=== PATIENT | male | born 1955 | race Caucasian/White ===

== ENCOUNTER → 2016-02-19 | Outpatient (CLI) | payer MEDICARE, MEDICAID ==
[~2016-02-19] MED LIST: CYCL7.5T15 PO; FAMO-12 PO; METH750T3 OR; NOR5T PO; RISP3TAB41 PO; SERTPOW PO; SIMV10TA84 PO; TIOTCAP; TIOTCAP IN; WARF5TAB71 OR; [UNRECOGNIZED DRUG - CODE] IJ; [UNRECOGNIZED DRUG - OTHER]
== END | disposition home or self-care (01) ==
LOC: XY 11:57
DX: G45.8 Other transient cerebral ischemic attacks and related syndromes (principal)
CPT/HCPCS: 93886

== ENCOUNTER 2016-04-25 13:04 | Inpatient (IN) | payer MEDICARE, MEDICAID ==
[~2016-04-25] VITALS: Ht 172.7 cm; Wt 85.7 kg
[~2016-04-25 13:04] MED LIST changes: +LEVO500T3 PO; +SACC250C PO; -TIOTCAP
[2016-04-25] MEDS ORDERED: PIPERACILLIN-TAZOB 3.375GM 100 ML IV ONE (13:45)
[2016-04-25] MEDS ORDERED: methylPREDNISolone SOD SUCC 125 MG/2 ML VL IV ONE (13:45)
[2016-04-25] MEDS ORDERED: ALBUTEROL SULF 2.5 MG/0.5ML(0.5%) NEB SOLN NEB ONE (13:45)
[2016-04-25] MEDS ORDERED: cefTRIAXone 1GM/50ML D5W 50 ML IV ONE (13:45)
[2016-04-25] MEDS ORDERED: IPRATROPIUM BROM 0.5 MG/2.5ML INH SOL NEB ONE (13:45)
[2016-04-25] MEDS ORDERED: SODIUM CHLORIDE 0.9% 1,000 ML IV ONE (14:00)
[2016-04-25] MEDS ORDERED: ACETAMINOPHEN 325 MG TAB PO ONE (14:15)
[2016-04-25 14:16] LABS: Hematocrit 42.5 % (41.0-53.0); Hemoglobin 14.2 g/dL (13.5-17.5); Mean Corpuscular Hemoglobin 29.9 pg (28.0-32.0); Mean Corpuscular Hgb Conc. 33.4 g/dL (32.0-36.0); Mean Corpuscular Volume 89.6 fL (80.0-100.0); Platelet Count (auto) 277 10^3/uL (140-450); Red Cell Distribution Width 14.5 % (11.6-16.0); SUSPECT VIEW TRANSMISSION; White Blood Cell 5.5 10^3/uL (4.4-10.8)
[2016-04-25 14:34] LABS: B-Type Natriuretic Peptide 14.35 pg/mL (0-100)
[2016-04-25 14:39] LABS: Albumin 3.7 g/dL (3.4-5.0); Alkaline Phosphatase 60 U/L (45-117); Anion Gap 5 (5-15); Aspartate Aminotransferase 22 U/L (15-37); BUN/Creatinine Ratio 20.7; Bilirubin, Total 0.2 mg/dL (0.2-1.0); Blood Urea Nitrogen 19 mg/dL (7-18); Calcium 9.1 mg/dL (8.5-10.1); Carbon Dioxide 36 mmol/L (21-32); Chloride 105 mmol/L (98-107); GFR African American 108 mL/min; GFR Non-African American 89 mL/min; Glucose 107 mg/dL (74-106); Magnesium 2.4 mg/dL (1.6-2.6); Sodium 146 mmol/L (136-145); Total Protein 7.9 g/dL (6.4-8.2)
[2016-04-25 14:44] LABS: Temperature: 22.9 C (20.0-25.0)
[2016-04-25 14:51] LABS: Metamyelocytes % 0; Myelocytes % 0; Promyelocytes % 0; Reactive Lymphocytes 0
[2016-04-25] MEDS ORDERED: ENOXAPARIN SOD 80 MG/0.8ML SYRINGE SC ONE (15:30)
[2016-04-25 15:39] LABS: Platelet Estimate Adequate
[2016-04-25 15:40] LABS: Stomatocytes Few
[2016-04-25 15:50] LABS: Partial Thromboplastin Time 33.4 sec (22.64-33.71)
[2016-04-25 15:58] LABS: Prothrombin Time 18.9 sec (9.37-12.3)
[2016-04-25 15:59] LABS: INR 1.83 (0.9-1.15)
[2016-04-25] MEDS ORDERED: OSELTAMIVIR 75 MG CAP PO ONE (16:15)
[2016-04-25] MEDS ORDERED: TEMAZEPAM 15 MG CAP PO PRN (16:15)
[2016-04-25] MEDS ORDERED: MORPHINE SULF INJ 2 MG/ML SYRINGE 1ML IV PRN (16:15)
[2016-04-25] MEDS ORDERED: LACTULOSE 20Gm/30ML SOLN PO PRN (16:15)
[2016-04-25] MEDS ORDERED: NITROGLYCERIN 0.4 MG SL TAB SL PRN (16:15)
[2016-04-25] MEDS ORDERED: LORazepam 0.5 MG TAB PO PRN (16:15)
[2016-04-25] MEDS ORDERED: ACETAMINOPHEN 500 MG TAB PO PRN (16:15)
[2016-04-25] MEDS ORDERED: ALBUTEROL SULF 2.5 MG/0.5ML(0.5%) NEB SOLN NEB PRN (16:15)
[2016-04-25] MEDS ORDERED: METHOCARBAMOL 500 MG TAB PO PRN (16:30)
[2016-04-25] MEDS: SODIUM CHLORIDE 0.9% 1,000 ML IV SCH (16:34)
[2016-04-25] MEDS: AZITHROMYCIN 500MG/D5W 250ML 250 ML IV SCH (16:34)
[2016-04-25] MEDS ORDERED: WARFARIN SODIUM 2.5 MG TAB PO ONE (17:00)
[2016-04-25] MEDS: methylPREDNISolone SOD SUCC 40 MG/ML VL IV SCH (17:45)
[2016-04-25] MEDS: IPRATROPIUM BROM 0.5 MG/2.5ML INH SOL NEB SCH (18:18)
[2016-04-25] MEDS: ALBUTEROL SULF 2.5 MG/0.5ML(0.5%) NEB SOLN NEB SCH (18:18)
[2016-04-25 20:53] VITALS: BP 116/74
[2016-04-25] MEDS: PRAVASTATIN SODIUM 20 MG TAB PO SCH (21:18)
[2016-04-25] MEDS: FAMOTIDINE 20 MG TAB PO SCH (21:18)
[2016-04-25] MEDS: risperiDONE 1 MG TAB PO SCH (21:18)
[2016-04-25 22:22] VITALS: BP 119/70
[2016-04-26] VITALS (10 sets, daily range): BP systolic 118–139; BP diastolic 62–86
[2016-04-26] MEDS: IPRATROPIUM BROM 0.5 MG/2.5ML INH SOL NEB SCH ×4 (00:28→18:50)
[2016-04-26] MEDS: ALBUTEROL SULF 2.5 MG/0.5ML(0.5%) NEB SOLN NEB SCH ×4 (00:28→18:50)
[2016-04-26] MEDS: HYDROcodone-ACET 5/325MG TAB PO PRN ×3 (00:56→19:41)
[2016-04-26] MEDS: SODIUM CHLORIDE 0.9% 1,000 ML IV SCH ×2 (05:26→21:22)
[2016-04-26] MEDS: methylPREDNISolone SOD SUCC 40 MG/ML VL IV SCH ×4 (06:08→17:35)
[2016-04-26 06:30] LABS: Basophils # (auto) 0 uL; Eosinophils # (auto) 0 uL; Eosinophils % (auto) 0.1 % (0.0-7.0); Hematocrit 38.1 % (41.0-53.0); Hemoglobin 12.6 g/dL (13.5-17.5); Lymphocytes # (auto) 0.4 uL; Lymphocytes % (auto) 7.8 % (10.0-50.0); Mean Corpuscular Hemoglobin 29.9 pg (28.0-32.0); Mean Corpuscular Hgb Conc. 33.1 g/dL (32.0-36.0); Mean Corpuscular Volume 90.5 fL (80.0-100.0); Mean Platelet Volume 8.4 fL (7.4-10.4); Monocytes # (auto) 0.2 uL; Monocytes % (auto) 3.7 % (0.0-12.0); Neutrophils # (auto) 4.3 uL; Neutrophils % (auto) 88.4 % (37.0-80.0); Platelet Count (auto) 244 10^3/uL (140-450); Red Cell Distribution Width 14.4 % (11.6-16.0); White Blood Cell 4.8 10^3/uL (4.4-10.8)
[2016-04-26 06:46] LABS: Potassium 3.9 mmol/L (3.5-5.1)
[2016-04-26 06:54] LABS: Albumin 3.1 g/dL (3.4-5.0); BUN/Creatinine Ratio 28.1; Calcium 8.5 mg/dL (8.5-10.1)
[2016-04-26 06:55] LABS: Partial Thromboplastin Time 36.1 sec (22.64-33.71)
[2016-04-26 06:56] LABS: Bilirubin, Total 0.2 mg/dL (0.2-1.0)
[2016-04-26 07:02] LABS: INR 2.49 (0.9-1.15); Prothrombin Time 25.6 sec (9.37-12.3)
[2016-04-26] MEDS: cefTRIAXone 1GM/50ML D5W 50 ML IV SCH (09:07)
[2016-04-26] MEDS ORDERED: OSELTAMIVIR 75 MG CAP PO SCH (10:00)
[2016-04-26] MEDS: AZITHROMYCIN 500MG/D5W 250ML 250 ML IV SCH (10:12)
[2016-04-26] MEDS: SERTRALINE HCL 50 MG TAB PO SCH (10:12)
[2016-04-26] MEDS: FAMOTIDINE 20 MG TAB PO SCH ×2 (10:12→21:22)
[2016-04-26] MEDS ORDERED: NICOTINE 7MG/24HR TOPICAL PATCH TD ONE (11:15)
[2016-04-26] MEDS: PROMETHAZINE HCL 25 MG/ML 1ML IV PRN (11:52)
[2016-04-26] MEDS ORDERED: WARFARIN SODIUM 2.5 MG TAB PO ONE (17:00)
[2016-04-26] MEDS: PRAVASTATIN SODIUM 20 MG TAB PO SCH (21:22)
[2016-04-26] MEDS: risperiDONE 1 MG TAB PO SCH (21:23)
[2016-04-27] VITALS (7 sets, daily range): BP systolic 130–158; BP diastolic 77–88
[2016-04-27] MEDS: IPRATROPIUM BROM 0.5 MG/2.5ML INH SOL NEB SCH ×5 (00:11→23:36)
[2016-04-27] MEDS: ALBUTEROL SULF 2.5 MG/0.5ML(0.5%) NEB SOLN NEB SCH ×5 (00:11→23:36)
[2016-04-27] MEDS: methylPREDNISolone SOD SUCC 40 MG/ML VL IV SCH ×5 (00:13→21:51)
[2016-04-27 06:38] LABS: Partial Thromboplastin Time 32.4 sec (22.64-33.71)
[2016-04-27 06:56] LABS: INR 2.41 (0.9-1.15); Prothrombin Time 24.8 sec (9.37-12.3)
[2016-04-27] MEDS: cefTRIAXone 1GM/50ML D5W 50 ML IV SCH (08:54)
[2016-04-27] MEDS: NICOTINE 7MG/24HR TOPICAL PATCH TD SCH (09:29)
[2016-04-27] MEDS: AZITHROMYCIN 500MG/D5W 250ML 250 ML IV SCH (09:30)
[2016-04-27] MEDS: FAMOTIDINE 20 MG TAB PO SCH ×2 (09:30→21:52)
[2016-04-27] MEDS: SERTRALINE HCL 50 MG TAB PO SCH (09:30)
[2016-04-27] MEDS: HYDROcodone-ACET 5/325MG TAB PO PRN ×2 (10:03→21:52)
[2016-04-27] MEDS: PROMETHAZINE HCL 25 MG/ML 1ML IV PRN (11:07)
[2016-04-27] MEDS ORDERED: WARFARIN SODIUM 2.5 MG TAB PO ONE (17:00)
[2016-04-27] MEDS: PRAVASTATIN SODIUM 20 MG TAB PO SCH (21:52)
[2016-04-27] MEDS: risperiDONE 1 MG TAB PO SCH (21:52)
[2016-04-28] MEDS: methylPREDNISolone SOD SUCC 40 MG/ML VL IV SCH ×3 (05:28→21:54)
[2016-04-28] MEDS: HYDROcodone-ACET 5/325MG TAB PO PRN ×3 (05:29→21:55)
[2016-04-28 05:46] LABS: Partial Thromboplastin Time 29.5 sec (22.64-33.71)
[2016-04-28 05:49] LABS: INR 2.04 (0.9-1.15)
[2016-04-28] MEDS: ALBUTEROL SULF 2.5 MG/0.5ML(0.5%) NEB SOLN NEB SCH ×4 (06:18→23:59)
[2016-04-28] MEDS: IPRATROPIUM BROM 0.5 MG/2.5ML INH SOL NEB SCH ×4 (06:18→23:58)
[2016-04-28 08:39] VITALS: BP 148/89
[2016-04-28] MEDS: MORPHINE SULF INJ 2 MG/ML SYRINGE 1ML IV PRN (09:46)
[2016-04-28] MEDS: cefTRIAXone 1GM/50ML D5W 50 ML IV SCH (09:47)
[2016-04-28] MEDS: NICOTINE 7MG/24HR TOPICAL PATCH TD SCH (11:00)
[2016-04-28] MEDS: SERTRALINE HCL 50 MG TAB PO SCH (11:01)
[2016-04-28] MEDS: AZITHROMYCIN 500MG/D5W 250ML 250 ML IV SCH (11:01)
[2016-04-28] MEDS: FAMOTIDINE 20 MG TAB PO SCH ×2 (11:01→21:54)
[2016-04-28 12:14] VITALS: BP 148/84
[2016-04-28] MEDS ORDERED: WARFARIN SODIUM 2 MG TAB PO ONE (17:00)
[2016-04-28] MEDS: PRAVASTATIN SODIUM 20 MG TAB PO SCH (21:54)
[2016-04-28] MEDS: risperiDONE 1 MG TAB PO SCH (21:54)
[2016-04-28 22:00] VITALS: BP 151/89
[2016-04-29] MEDS: MORPHINE SULF INJ 2 MG/ML SYRINGE 1ML IV PRN (00:19)
[2016-04-29 05:00] VITALS: BP 159/99
[2016-04-29] MEDS: ALBUTEROL SULF 2.5 MG/0.5ML(0.5%) NEB SOLN NEB SCH ×2 (05:56→12:21)
[2016-04-29] MEDS: IPRATROPIUM BROM 0.5 MG/2.5ML INH SOL NEB SCH ×2 (05:56→12:21)
[2016-04-29] MEDS: methylPREDNISolone SOD SUCC 40 MG/ML VL IV SCH (05:59)
[2016-04-29 07:33] LABS: INR 1.76 (0.9-1.15); Partial Thromboplastin Time 27.6 sec (22.64-33.71); Prothrombin Time 18.1 sec (9.37-12.3)
[2016-04-29 07:43] LABS: Potassium 4.2 mmol/L (3.5-5.1)
[2016-04-29 07:56] LABS: Albumin 3.3 g/dL (3.4-5.0); BUN/Creatinine Ratio 29.5; Calcium 8.4 mg/dL (8.5-10.1)
[2016-04-29 07:59] LABS: Bilirubin, Total 0.3 mg/dL (0.2-1.0); Total Protein 6.7 g/dL (6.4-8.2)
[2016-04-29 09:00] VITALS: BP 149/87
[2016-04-29] MEDS: SERTRALINE HCL 50 MG TAB PO SCH (09:10)
[2016-04-29] MEDS: FAMOTIDINE 20 MG TAB PO SCH (09:11)
[2016-04-29] MEDS: NICOTINE 7MG/24HR TOPICAL PATCH TD SCH (09:12)
[2016-04-29] MEDS: HYDROcodone-ACET 5/325MG TAB PO PRN (09:16)
[2016-04-29] MEDS ORDERED: LEVOFLOXACIN 500 MG TAB PO SCH (10:00)
[2016-04-29 12:58] VITALS: BP 149/87
[2016-04-29 13:00] VITALS: BP 150/91
[2016-04-29] MEDS ORDERED: WARFARIN SODIUM 2 MG TAB PO ONE (17:00)
== END 2016-04-29 14:50 | disposition home health service (06) | DRG 189 ==
LOC: EDUNIT# 13:04 → ER 13:11 → TELE 13:12 → DOU IN ICU 04-26 03:05 → TELE-EAST 04-27 15:46
PROVIDERS: ADMIT Internal Medicine; ATTEND Internal Medicine
PROC: 5A09357 Assistance with Respiratory Ventilation, Less than 24 Consecutive Hours, Continuous Positive Airway Pressure (ICD-10-PCS; principal; 2016-04-25)
DX: J96.20 Acute and chronic respiratory failure, unspecified whether with hypoxia or hypercapnia (principal); J44.1 Chronic obstructive pulmonary disease with (acute) exacerbation; D68.9 Coagulation defect, unspecified; K21.9 Gastro-esophageal reflux disease without esophagitis; I12.9 Hypertensive chronic kidney disease with stage 1 through stage 4 chronic kidney disease, or unspecified chronic kidney disease; N18.9 Chronic kidney disease, unspecified; F17.210 Nicotine dependence, cigarettes, uncomplicated; F20.9 Schizophrenia, unspecified; F32.9 Major depressive disorder, single episode, unspecified; T45.515A Adverse effect of anticoagulants, initial encounter; F41.9 Anxiety disorder, unspecified; Z82.3 Family history of stroke; Z82.49 Family history of ischemic heart disease and other diseases of the circulatory system; Z83.3 Family history of diabetes mellitus; Z86.711 Personal history of pulmonary embolism; Z86.73 Personal history of transient ischemic attack (TIA), and cerebral infarction without residual deficits; Z99.81 Dependence on supplemental oxygen; Z91.010 Allergy to peanuts; Z88.1 Allergy status to other antibiotic agents; Z86.718 Personal history of other venous thrombosis and embolism; Z88.8 Allergy status to other drugs, medicaments and biological substances; Z79.899 Other long term (current) drug therapy; Z79.01 Long term (current) use of anticoagulants
CPT/HCPCS: 36415; 36600; 71010; 80053; 80061; 82805; 83605; 83735; 83880; 84484; 85007; 85025; 85027; 85379; 85610; 85730; 87040; 87081; 87400; 87493; 93005; 94640; 94644; 94660; 96365; 96366; 96368; 96372; 96375; 99291; J0696; J2543